=== PATIENT | male | born 2000 | race Two or more races ===

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

== ENCOUNTER 2022-01-21 11:00 | Emergency (ER) | payer MEDICAID ==
[~2022-01-21] VITALS: Ht 175.3 cm; Wt 80.4 kg
[2022-01-21 11:58] VITALS: BP 120/70
[2022-01-21] MEDS ORDERED: TRAM-297 PO (12:46)
== END 2022-01-21 13:14 | disposition home or self-care (01) ==
LOC: EDBD 11:00 → ER 11:00
DX: S46.911A Strain of unspecified muscle, fascia and tendon at shoulder and upper arm level, right arm, initial encounter (principal); J45.909 Unspecified asthma, uncomplicated; Z79.899 Other long term (current) drug therapy; Z88.7 Allergy status to serum and vaccine; X58.XXXA Exposure to other specified factors, initial encounter; Y93.89 Activity, other specified; Y92.89 Other specified places as the place of occurrence of the external cause; Y99.8 Other external cause status
CPT/HCPCS: 73030